=== PATIENT | female | born 1995 | race Caucasian/White ===

== ENCOUNTER 2023-10-01 12:12 | Outpatient (REF) | payer OTHER, SELFPAY ==
[2023-10-01 12:36] LABS: MANUAL DIFF FLAG NO
[2023-10-01 12:55] LABS: Basophils Percent Auto 0.3 % (0-2); Eosinophils Absolute Auto 0.2 X10*3/uL (0.0-0.4); Eosinophils Percent Auto 1.4 % (0-4); Hematocrit 38.5 % (37.0-47.0); Hemoglobin 12.8 g/dl (12.0-16.0); Imm Gran Abs Auto 0.08 X10*3/uL (0.00-0.03); Imm Gran Pct Auto 0.6 % (0.0-0.4); Lymphocytes Absolute Auto 2.5 X10*3/uL (1.2-4.9); Lymphocytes Percent Auto 19.7 % (20-40); Mean Corpuscular HGB Conc 33.2 g/dl (31.0-35.0); Mean Corpuscular Hemoglobin 27.9 pg (27.0-33.0); Mean Corpuscular Volume 84.1 fL (80.0-98.0); Mean Platelet Volume 9.5 fL (9.4-12.3); Monocytes Absolute Auto 0.6 X10*3/uL (0.1-1.2); Monocytes Percent Auto 4.7 % (2-11); Neutrophils Absolute Auto 9.3 x10*3/uL (2.0-8.3); Neutrophils Percent Auto 73.3 % (45-73); Platelet Count 363 X10*3/uL (160-400); Red Blood Count 4.58 X10*6/uL (4.20-5.50); White Blood Count 12.7 X10*3/uL (4.8-10.8)
[2023-10-01 13:31] LABS: Alanine Aminotransferase 12 U/L (0-31); Alkaline Phosphatase 73 U/L (39-117); Anion Gap 11 (12-20); Aspartate Amino Transferase 12 U/L (5-31); Bilirubin Total 0.3 mg/dL (0.0-1.0); Blood Urea Nitrogen 8 mg/dL (9-16); Calcium 9.5 mg/dL (8.4-10.2); Carbon Dioxide 26 mmol/L (22-29); Chloride 106 mmol/L (96-108); Cholesterol 214 mg/dL (<200); Estimated Glomerular Filt Rate > 60; Glucose Random 88 mg/dL (60-115); HDL Cholesterol 69 mg/dL (>40); LDL Cholesterol Calculated 119 mg/dL (<100); Potassium 4.6 mmol/L (3.3-5.1); Sodium 138 mmol/L (135-145); Total Protein 7.3 g/dL (6.5-8.0); Triglycerides 132 mg/dL (<150)
[2023-10-01 13:47] LABS: Thyroid Stimulating Hormone 1.83 uIU/mL (0.32-4.0)
== END 2023-10-01 12:13 | disposition home or self-care (01) ==
LOC: HO.LAB 12:12
PROVIDERS: PCP Internal Medicine; Visit Provider Internal Medicine
DX: Z00.00 Encounter for general adult medical examination without abnormal findings (principal); E28.2 Polycystic ovarian syndrome; E78.00 Pure hypercholesterolemia, unspecified; Z13.31 Encounter for screening for depression
CPT/HCPCS: 36415; 80053; 80061; 84443; 85025

== ENCOUNTER 2023-12-04 13:14 | Outpatient (REF) | payer OTHER, SELFPAY ==
[2023-12-05 03:49] LABS: CT PCR NOT DETECTED (Not Detect.); NG PCR NOT DETECTED (Not Detect.)
[2023-12-05 11:10] LABS: Bacterial Vaginosis PCR NEGATIVE (Negative); Candida Group PCR NOT DETECTED (Not Detect); Candida glab krusei PCR NOT DETECTED (Not Detect); Trichomonas vaginalis PCR NOT DETECTED (Not Detect)
== END 2023-12-04 13:15 | disposition home or self-care (01) ==
LOC: HO.LAB 13:14
PROVIDERS: PCP Internal Medicine; Visit Provider Advanced Practice Midwife
DX: Z01.419 Encounter for gynecological examination (general) (routine) without abnormal findings (principal); Z79.3 Long term (current) use of hormonal contraceptives; L70.9 Acne, unspecified; Z87.42 Personal history of other diseases of the female genital tract; Z11.3 Encounter for screening for infections with a predominantly sexual mode of transmission
CPT/HCPCS: 0352U; 0353U; 99385

== ENCOUNTER 2023-12-04 13:14 | Outpatient (AMB) | payer OTHER, SELFPAY ==
--- NOTE | 2023-12-04 13:18 | A.OFFVIS_ITS ---
Vital Signs 12/04/23 13:19 Height 5 ft 3 in Weight 154 lb BMI 27.3 BP 120/60 Intake Visit Reasons: New patient Irregular menses Housekeeping/Laundry Supervisor Required: No Information Interpreted: clinical only Clinical Phlebotomist: Clinical Phlebotomist Present Allergies No Known Allergies Allergy (Verified 12/04/23 13:20) Medication List - Last Reconciled 12/04/23 by Ya Collins CNM drospirenone-ethinyl estradiol 3-0.03 mg (Anika) 1 tab PO DAILY Is last menstrual period known: Yes Last menstrual period: 11/20/23 HPI HPI New patient Irregular menses: Details: Patient is here is a new patient she said she had to switch primary care providers this year because of insurance change and her new PCC refilled her control pills for her but sent her to OBGYN and suggested she might need an ultrasound because of some missed periods she has been on control pills for a few years now that she was started on in [place] to help regulate her menses and also they had the benefit of improving her acne so she did not need to be on Accutane anymore. She used to skip a month or 2 and at the most 3 months when she is in [place] and had be given a medication to bring 100 periods and she was recommended to just beyond the control pills after that and they have worked very well to regulate her periods recently however though she did not get her. When she was supposed to on the pills and 1 other time was very very very light. She did get a period though it was light on the . She is but she and her do not feel it has the right time to have a baby yet but she will want to in the future. 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 They have been in this country a little over year. She has in her phone all of her lab results showing some elevated hormone levels but I reviewed them with her and they were not as elevated as she thought and none were out of range including LH DHEA prolactin TSH and estradiol. Other chemistry labs were all within normal limits as well. She had a Pap smear done last year in August by her then primary care provider in [place] that the [facility] in August of 2022 and it was negative. Other testing for STIs including blood work for STIs was all negative as well. Currently she does not do much exercise other than house work. [facility] Surgical History (Updated 12/04/23 @ 13:25 by Aria Goode CMA) Hx of tonsillectomy Social History (Updated 12/04/23 @ 13:27 by rAia Goode CMA) Alcohol intake: never Patient Tobacco Use Status: Never used Tobacco e-Cigarette/Vaping Use: Never Used Use of substances other than those prescribed or required for medical reasons: No Female Reproductive History Menstrual Age of Menarche: 15 Duration of menses: 6-7 days Date of last menstrual period: 11/20/23 control method: pills Total pregnancies: 0 Date of last pap smear: 09/12/22 (negative,per patient) History of abnormal pap smear: No Physical Exam Vital Signs: Last Vital Signs BP 120/60 12/04/23 13:19 BMI result Body Mass Index 27.3 Const General: healthy appearing, comfortable, no acute distress, well developed and alert Nutritional Appearance: average body habitus Orientation/consciousness: patient oriented x3 Limitations: no limitations HEENT Head: Yes normocephalic Neck Neck: Yes normal visual inspection Chest Chest palpation & inspection: normal inspection of the chest Breast/axilla inspection: normal inspection of the breasts and normal inspection of the axillae Breast/axilla palpation: normal palpation of the breasts and normal palpation of the axillae Resp Effort & Inspection: normal respiratory effort GI Inspection: Yes normal to inspection, No Abdominal wall edema and No distended Palpation (GI): Soft to palpation and nontender Other: Moist cervix nulliparous pink smooth with normal appearing whitish scant mucus. Uterus small midposition mobile nontender adnexa nontender not enlarged good tone with Kegel. General: Yes bladder normal to palpation External Female Exam: normal external appearance and normal appearance of the urethra Speculum Exam - Vagina: normal appearance of the vagina, normal palpation and normal vaginal discharge Speculum Exam - Cervix: normal appearance of the cervix, normal palpation and nontender Bimanual exam- vagina & uterus: normal bimanual exam, normal palpation, uterine size normal, bladder normal to palpation, consistency normal, normal palpation, uterine mobility normal, uterine shape normal, No Cervical tenderness present, non-tender and no cervical motion tenderness Bimanual Exam- Adnexa, other: normal adnexae, no masses, normal and No adnexal tenderness Neuro General: patient oriented x3 Results Reviewed Results Reviewed: Patient showed me results -in her phone- of Pap smear--( negative) from August of 2022, and hormone levels which were within normal limits for prolactin,(222,) TSH (3.13)-all of the lab results from 2020. though both of these were in the higher range of normal) as well as DHEA and LH and estradiol and CBC and other chemistry labs all within normal range. Assessment & Plan Assessment & Plan (1) History of irregular menstrual cycles: Code(s): Z87.42 - Personal history of other diseases of the female genital tract Category: Medical (2) Acne: Code(s): L70.9 - Acne, unspecified Category: Medical (3) Cervical cancer screening: Comment: Pap negative August of 2022 next Pap due 09/16 Code(s): Z12.4 - Encounter for screening for malignant neoplasm of cervix Category: Medical (4) Well woman exam with routine gynecological exam: Code(s): Z01.419 - Encounter for gynecological examination (general) (routine) without abnormal findings Category: Medical (5) Counseling for control, oral contraceptives: Code(s): Z30.09 - Encounter for other general counseling and advice on contraception Category: Medical Plan Reviewed patient's history in detail see HPI for details. She is history of irregular periods and had a battery of testing in [place] and at 1 point was given Provera to bring on menses when it had not come for 3 months and then managed on control pills since then successfully the only concern was recently when she did not get a menses when she expected it to on the pills and another month when it was extremely light. I reviewed that this can happen on control pills when somebody has been on them for a long time and it is not a cause of concern as long as there are no missed pills and if she had missed a pill would be [place] to do tests. She had a Pap smear done last year in [place] and showed me the results on the phone which were negative so she does not need a Pap for another 2 years until 2025. She accepted testing for STIs with the exam today her exam was completely normal within normal limits much of the visit revolved around her concerns for possible PCOS as she has reading a lot of things on the web that are scary to her in terms of what this involves and also concerned that being on control pills for such a long time will lead to into infertility. Review with her that perhaps the verses true and when she decides she wants to get my best advice EB that she stopped the control pills and start trying to get right away and if she starts skipping periods or it takes more than 6 months to get , along with keeping careful records of her menses, and when she has had sex, and evidence of ovulation, then she should seek care at [facility] infertility services ([facility]) For now the most important thing that she should consider as trying to maintain a healthy weight and in fact if she tries to lose weight that may be to her benefit in terms of helping manage the hormonal this regulation that occurs with PCOS her labs in her system were within the normal ranges however history of irregular menses acne (hirsute is Um which she does not have), is enough to say that she may have PCOS. Since her primary care provider suggested that she have an ultrasound I am no problem with ordering her 1 and will not be surprised if there is a very thin endometrial lining she may or may not have increased follicles suggestive of PCOS, but we'll review the ultrasound at her next visit. She says she has enough control pills for 9 more months review this again at her next visit after the ultrasound Orders: Orders CT NG by PCR Today Z11.3 - Encounter for screening for infections with a predominantly sexual mode of transmission Bacterial Vaginosis Panel Today Z87.42 - Personal history of other diseases of the female genital tract US pelvic and transvaginal Today L70.9 - Acne, unspecified, Z87.42 - Personal history of other diseases of the female genital tract Coding Level of Care Code New Pt Prev Care 18-39yr([id number] Diagnoses History of irregular menstrual cycles Z87.42 Acne L70.9 Cervical cancer screening Z12.4 Well woman exam with routine gynecological exam Z01.419 Counseling for control, oral contraceptives Z30.09
[2023-12-04 13:19] VITALS: BP 120/60; BMI 27.3
== END 2023-12-04 14:34 | disposition home or self-care (01) ==
LOC: HO.HWSM 13:14
PROVIDERS: PCP Internal Medicine; Visit Provider Advanced Practice Midwife
DX: Z01.419 Encounter for gynecological examination (general) (routine) without abnormal findings (principal); L70.9 Acne, unspecified; Z87.42 Personal history of other diseases of the female genital tract
CPT/HCPCS: 99385

== ENCOUNTER 2023-12-10 13:52 | Outpatient (REF) | payer OTHER, SELFPAY ==
--- NOTE | ~2023-12-10 | US_ITS ---
EXAMINATION: US PELVIS CLINICAL INFORMATION: History of irregular menstrual cycles, last menstrual period 11/20/2023. COMPARISON: None available. TECHNIQUE: Ultrasound of the pelvis is performed using both transabdominal and transvaginal transducers along with Doppler. Transvaginal imaging is performed due to inadequate visualization transabdominally. FINDINGS: The uterus measures 7.4 x 2.3 x 4.0 cm and is anteverted. No discrete fibroids are appreciated. Endometrial thickness is 4 mm. Left ovary measures 2.1 x 1.1 x 1.4 cm, volume 1.7 mL and was seen only on transabdominal ultrasound images. Left ovary is grossly unremarkable. Right ovary measures 2.4 x 1.6 x 1.2 cm, volume 2.4 mL and was seen only on transabdominal ultrasound images. Right ovary is grossly unremarkable. Trace amount of free fluid in the left adnexa. US/US pelvic and transvaginal IMPRESSION: Endometrial thickness is 4 mm. Bilateral ovaries are grossly unremarkable, although visualization is limited due to bowel gas. Small amount of free fluid in the left adnexa.
== END 2023-12-10 13:53 | disposition home or self-care (01) ==
LOC: HO.US 13:52
PROVIDERS: PCP Internal Medicine; Visit Provider Advanced Practice Midwife
DX: L70.9 Acne, unspecified (principal); Z87.42 Personal history of other diseases of the female genital tract
CPT/HCPCS: 76830; 76856

== ENCOUNTER 2024-01-02 13:01 | Outpatient (AMB) | payer OTHER, SELFPAY ==
--- NOTE | 2024-01-02 13:06 | MHC.OFFVIS ---
Vital Signs 01/02/24 13:09 Height 5 ft 3 in Weight 154 lb BMI 27.3 BP 110/60 Intake Visit Reasons: Ultrasound Follow up Strategic Accounts Manager Services: Strategic Accounts Manager Present Information Interpreted: clinical only Event Management Consultant: Event Management Consultant Present Allergies No Known Allergies Allergy (Verified 01/02/24 13:09) Medication List - Last Reconciled 01/02/24 by Ya Collins CNM drospirenone-ethinyl estradiol 3-0.03 mg (Anika) 1 tab PO DAILY Is last menstrual period known: Yes Last menstrual period: 12/16/23 Do you need a note to return to daycare/school/sports/work: No HPI HPI Ultrasound Follow up: Details: here to review her ultrasound but she has lots of questions about possible future conception etc.. her periods have been fine since, are short and come on time. she is on the pills she started on in [place], ( generic ranjith) and doing well with them, She and her are Amharic, she tells me her name is pronounced. [facility] Surgical History (Updated 12/04/23 @ 13:25 by Aria Goode [facility]) Hx of tonsillectomy Social History (Updated 12/04/23 @ 13:27 by Aria Goode CMA) Alcohol intake: never Patient Tobacco Use Status: Never used Tobacco e-Cigarette/Vaping Use: Never Used Female Reproductive History Menstrual Age of Menarche: 15 Date of last menstrual period: 12/16/23 Physical Exam Vital Signs: Last Vital Signs BP 110/60 01/02/24 13:09 BMI result Body Mass Index 27.3 Results Reviewed Results Reviewed: atient: Ralph Ross MR#: [id number] : 1995 Acct:[id number] Age/Sex: 28 / F ADM Date: 12/10/23 Loc: HO.US Attending Dr: Ya Collins CNM Ordering Physician: Ya Collins CNM Date of Service: 12/10/23 Procedure(s): US pelvic and transvaginal Accession Number(s): [id number] cc: Oksana Gorman MD; Ya Collins CNM~ EXAMINATION: US PELVIS CLINICAL INFORMATION: History of irregular menstrual cycles, last menstrual period 11/20/2023. COMPARISON: None available. TECHNIQUE: Ultrasound of the pelvis is performed using both transabdominal and transvaginal transducers along with Doppler. Transvaginal imaging is performed due to inadequate visualization transabdominally. FINDINGS: The uterus measures 7.4 x 2.3 x 4.0 cm and is anteverted. No discrete fibroids are appreciated. Endometrial thickness is 4 mm. Left ovary measures 2.1 x 1.1 x 1.4 cm, volume 1.7 mL and was seen only on transabdominal ultrasound images. Left ovary is grossly unremarkable. Right ovary measures 2.4 x 1.6 x 1.2 cm, volume 2.4 mL and was seen only on transabdominal ultrasound images. Right ovary is grossly unremarkable. Trace amount of free fluid in the left adnexa. US/US pelvic and transvaginal IMPRESSION: Endometrial thickness is 4 mm. Bilateral ovaries are grossly unremarkable, although visualization is limited due to bowel gas. Small amount of free fluid in the left adnexa. Dictated By: Lianna Kennedy MD Signed By: <Electronically signed by Lianna Kennedy MD in [place]> 12/30/23 1125 DD/ 1445 TD/TT: Level Glass Forming Machine Operator: Assessment & Plan Assessment & Plan (1) Cervical cancer screening: Comment: Pap negative August of 2022 next Pap due 09/16 Code(s): Z12.4 - Encounter for screening for malignant neoplasm of cervix Category: Medical (2) Well woman exam with routine gynecological exam: Code(s): Z01.419 - Encounter for gynecological examination (general) (routine) without abnormal findings Category: Medical (3) Counseling for control, oral contraceptives: Code(s): Z30.09 - Encounter for other general counseling and advice on contraception Category: Medical (4) Patient desires : Code(s): Z31.9 - Encounter for procreative management, unspecified Category: Medical Plan I reviewed her ultrasound with her in detail. Also reviewed planning for future she would questions about which vitamins were best and I told her that basically they were all essentially the same but she could seek out minor differences wherever she goes most would have sufficient folic acid if they were vitamins and there might be slight differences. Additionally I informed her that [facility] does not have a comprehensive OB service or delivery service anymore so her options given that [facility] [place] would include [facility] or [address] [place] [address]. In addition I refilled her control pills for another year so she has sure to not run out Also they had questions about genetic testing because in [place] where there from she said that there was a specific blood tests that everyone had to have before they were and before they had children that was a genetic test. Since I do not know about this I referred her to genetic counseling and in the meantime they are to inquire about family history as best they can. They shared that they are 2nd cousins to each other. She took a picture of the referral so she can call herself as well Additionally she shared that he smokes and she wants him to quit before they have a baby but said he needs help so we looked up the mass dot of site for quitting smoking on her phone so that they can access that for assistance. Orders: Referrals Genetics Referral Z01.419 - Encounter for gynecological examination (general) (routine) without abnormal findings, Z12.4 - Encounter for screening for malignant neoplasm of cervix, Z30.09 - Encounter for other general counseling and advice on contraception, Z31.9 - Encounter for procreative management, unspecified Medications: New drospirenone-ethinyl estradiol 3-0.03 mg (Anika) 1 tab PO DAILY 84 tabs 3RF Coding Level of Care Code Est Pt Level 3 (47311) Diagnoses Cervical cancer screening Z12.4 Well woman exam with routine gynecological exam Z01.419 Counseling for control, oral contraceptives Z30.09 Patient desires Z31.9
[2024-01-02 13:09] VITALS: BP 110/60; BMI 27.3
== END 2024-01-02 13:58 | disposition home or self-care (01) ==
LOC: HO.HWSM 13:01
PROVIDERS: PCP Internal Medicine; Visit Provider Advanced Practice Midwife
DX: Z30.09 Encounter for other general counseling and advice on contraception (principal)
CPT/HCPCS: 99213

== ENCOUNTER → 2024-01-02 13:01 | Outpatient (BNVA) | payer OTHER, SELFPAY | PROVIDERS: PCP Internal Medicine; Visit Provider Advanced Practice Midwife | DX: Z01.419 Encounter for gynecological examination (general) (routine) without abnormal findings (principal); Z12.4 Encounter for screening for malignant neoplasm of cervix; Z30.09 Encounter for other general counseling and advice on contraception; Z31.9 Encounter for procreative management, unspecified | CPT/HCPCS: 99212 ==

== ENCOUNTER 2024-05-14 11:47 | Outpatient (REF) | payer OTHER, SELFPAY ==
[2024-05-14 12:11] LABS: MANUAL DIFF FLAG NO
[2024-05-14 12:37] LABS: Basophils Percent Auto 0.4 % (0-2); Eosinophils Absolute Auto 0.2 X10*3/uL (0.0-0.4); Eosinophils Percent Auto 2.3 % (0-4); Hematocrit 35.6 % (37.0-47.0); Hemoglobin 12.3 g/dl (12.0-16.0); Imm Gran Abs Auto 0.02 X10*3/uL (0.00-0.03); Imm Gran Pct Auto 0.2 % (0.0-0.4); Lymphocytes Absolute Auto 2.8 X10*3/uL (1.2-4.9); Lymphocytes Percent Auto 33.4 % (20-40); Mean Corpuscular HGB Conc 34.6 g/dl (31.0-35.0); Mean Corpuscular Hemoglobin 28.3 pg (27.0-33.0); Monocytes Absolute Auto 0.4 X10*3/uL (0.1-1.2); Neutrophils Absolute Auto 4.9 x10*3/uL (2.0-8.3); Neutrophils Percent Auto 58.7 % (45-73); Platelet Count 311 X10*3/uL (160-400); Red Blood Count 4.34 X10*6/uL (4.20-5.50); Red Cell Distribution Width 13.2 % (11.0-16.0); White Blood Count 8.3 X10*3/uL (4.8-10.8)
[2024-05-14 13:33] LABS: Ferritin 51 ng/mL (10-122); Thyroid Stimulating Hormone 2.91 uIU/mL (0.32-4.0)
== END 2024-05-14 11:48 | disposition home or self-care (01) ==
LOC: HO.LAB 11:47
PROVIDERS: PCP Internal Medicine; Visit Provider Internal Medicine
DX: D64.9 Anemia, unspecified (principal); E28.2 Polycystic ovarian syndrome; R00.2 Palpitations; Z68.25 Body mass index [BMI] 25.0-25.9, adult
CPT/HCPCS: 36415; 82728; 84443; 85025